=== PATIENT | male | born 1980 | race American Indian/Alaskan Native ===

== ENCOUNTER 2019-01-28 07:11 | Outpatient (CLI) | payer BC ==
--- NOTE | 2019-01-28 08:05 | Ultrasound Report ---
ULTRASOUND TESTICULAR DOPPLER COMPLETE HISTORY: N43.2)Other hydrocele COMPARISON: None. TECHNIQUE: Grayscale, color and spectral Doppler images were obtained of the scrotum. FINDINGS: RIGHT: Right testicle: No significant abnormality. No mass. Right testicular size: 3.4 x 3.3 x 3.0 cm. Right epididymis: There are 2 small right epididymal head cyst measuring 6 mm each. LEFT: Left testicle: No significant abnormality. No mass. Left testicular size: 3.4 x 2.3 x 3.6 cm. Left epididymis: A left epididymal head cyst measures 1.3 cm. Additional findings: Moderate bilateral simple appearing hydroceles are identified. No varicocele. Sp ectral Doppler waveforms demonstrate arterial flow to both testicles. No evidence for epididymoorchit is. IMPRESSION: 1. Moderate bilateral simple appearing hydroceles. 2. Bilateral epididymal head cysts as described. Signer Name: Ton Childs Jr, MD Signed: 01/28/2019 8:00 AM Workstation Name: [id number]
== END 2019-01-28 07:12 | disposition home or self-care (01) ==
LOC: US 07:11
PROVIDERS: ATTEND Urology
DX: N43.2 Other hydrocele (principal); N50.3 Cyst of epididymis
CPT/HCPCS: 93975

== ENCOUNTER 2019-03-10 07:12 | Day surgery (SDC) | payer BC ==
[~2019-03-10 07:12] MED LIST: BUPIVACAINE/PF (0.25%) 2.5 MG/ML 30 ML VIAL INFILTRATI ONE
--- NOTE | 2019-03-10 08:57 | Anesthesia Day of Surgery ---
Anesthesia Day of Surgery - Day of Surgery Patient Examined: Yes Patient H&P Reviewed: Yes Patient is NPO: Yes
--- NOTE | 2019-03-10 08:57 | Anesthesia Consultation ---
Anesthesia Consult and Med Hx Date of service: 03/10/19 - Airway Anesthetic Teeth Evaluation: Good ROM Head & Neck: Adequate Mental/Hyoid Distance: Adequate Mallampati Class: Class II Intubation Access Assessment: Good - Pulmonary Exam CTA: Yes - Cardiac Exam Cardiac Exam: RRR - Pre-Operative Health Status ASA Pre-Surgery Classification: ASA1 Proposed Anesthetic Plan: General - Pulmonary Hx Smoking: No Hx Sleep Apnea: No (ERICK PRE SCREEN LOW RISK) - Cardiovascular System Hx Hypertension: No - Other Systems Hx Cancer: No
[2019-03-10] MEDS ORDERED: ONDANSETRON 4 MG/2 ML INJ IV PRN (08:58)
[2019-03-10] MEDS ORDERED: HYDROmorphone 1 MG/1 ML INJ IV PRN (08:58)
[2019-03-10] MEDS ORDERED: ceFAZolin/STERILE WATER 2 GM/20 ML SYRINGE IV NR (09:00)
[2019-03-10] MEDS ORDERED: LACTATED RINGERS 1,000 ML ONE (09:00)
[2019-03-10] MEDS ORDERED: MIDAZOLAM 2 MG/2 ML INJ IV NR (09:00)
[2019-03-10] MEDS ORDERED: LACTATED RINGERS 1,000 ML IV SCH (09:00)
[2019-03-10] MEDS ORDERED: LIDOCAINE (1%) 10 MG/1 ML VIAL 20 ML MDV ONE (09:43)
[2019-03-10] MEDS ORDERED: BUPIVACAINE/PF (0.25%) 2.5 MG/ML 30 ML VIAL INFILTRATI ONE ×2 (09:43→11:12)
[2019-03-10] MEDS ORDERED: SODIUM CHLORIDE 0.9% IRR 1,000 ML BOTTLE IR ONE (10:25)
[2019-03-10] MEDS ORDERED: fentaNYL 100 MCG/2 ML INJ ONE (10:28)
[2019-03-10] MEDS ORDERED: LIDOCAINE MPF (2%) 20 MG/1 ML VIAL 5 ML ONE (10:28)
[2019-03-10] MEDS ORDERED: PROPOFOL 200 MG/20 ML VIAL IV ONE (10:28)
[2019-03-10] MEDS ORDERED: dexAMETHasone 20 MG/5 ML VIAL ONE (10:52)
[2019-03-10] MEDS ORDERED: ONDANSETRON 4 MG/2 ML INJ ONE (10:52)
[2019-03-10] MEDS ORDERED: SODIUM CHLORIDE 0.9% 1000 ML 1,000 ML ONE (11:44)
--- NOTE | 2019-03-10 12:02 | Post Operative Note ---
Date of procedure: 03/10/19 Pre-op diagnosis: grimes Post-op diagnosis: same Findings: lateral obs Procedure: cysto rezum Anesthesia: GELY Surgeon: STEPH SAMPSON Estimated blood loss: none Pathology: none Condition: stable Disposition: PACU
--- NOTE | 2019-03-10 12:05 | Discharge Summary ---
Short Stay Discharge Plan Activity: other (no straining ) Weight Bearing Status: Full Weight Bearing Diet: regular Durable Medical Equipment Needed Upon Discharge: other (jennifer ) Follow up with: PATRIZIA GALLEGOS DO [Primary Care Provider] - 7 Days STEPH SAMPSON MD [Staff Physician] - 03/11/19
--- NOTE | 2019-03-10 12:08 | Post Operative Note ---
Date of procedure: 03/10/19 Pre-op diagnosis: hydrocel sterilization Post-op diagnosis: same Findings: large r hydrocele Procedure: r hydrocelectomy vas Anesthesia: GETA Surgeon: STEPH SAMPSON Estimated blood loss: minimal Pathology: list (vas sac) Specimen disposition: to lab Condition: stable Disposition: PACU
[2019-03-10 12:48] VITALS: BP 111/65
--- NOTE | 2019-03-10 13:16 | Operative Report ---
PREOPERATIVE DIAGNOSES: Hydrocele and elective sterilization. POSTOPERATIVE DIAGNOSES: Much more prominent right hydrocele, minimal left hydrocele. PROCEDURES: Right hydrocelectomy, bilateral partial vasectomy. SURGEON: Dr. Davila. ANESTHESIA: General. FINDINGS: This is a gentleman for his elective sterilization. All risks and implications discussed. He had a prominent hydrocele right. It looked like a small one on the left. He now presents for treatment. DESCRIPTION OF PROCEDURE: The patient was brought to the operating room and placed on the operating table. Following induction of anesthesia, placed in the supine position, prepped and draped in usual sterile fashion. An oblique incision made over the right hemiscrotum and the surrounding fascial layers were dissected free. Tunica vaginalis was delivered approximately 70 mL of clear fluid was obtained. The vas was then isolated and doubly ligated and the opening was cauterized. The specimen was removed from the vas on the right. Hemostasis was excellent. On the left side, the hydrocele was minimal. We were able to get the vas through the same incision and doubly tied and ligated. We did not do a left hydrocelectomy. The patient tolerated the procedure well. Minimal blood loss less than 5 mL. Superficial fascia was closed with 3-0 chromic. The drain was placed in the dependent portion of the right hemiscrotum and secured with a silk. The superficial fascia was closed with 2-0 and 3-0 chromic. Skin was closed with 2-0 and 3-0 chromic. The patient tolerated the procedure well and brought to recovery in stable condition. JOB# [id number] SHAD/KADE
--- NOTE | 2019-03-10 13:38 | Post Anesthesia Evaluation ---
- Post Anesthesia Evaluation Patient Participated: Yes Airway Patent: Yes Stable Respiratory Function: Yes Nausea/Vomiting: No Temp > 96.8F: Yes Pain Manageable: Yes Adequeate Hydration: Yes Anesthesia Complications: No Block Receding Appropriately: Not Applicable Patient on Ventilator: No
== END 2019-03-10 07:13 | disposition home or self-care (01) ==
LOC: OR 07:12
PROVIDERS: ATTEND Urology
DX: Z30.2 Encounter for sterilization (principal); N43.3 Hydrocele, unspecified
CPT/HCPCS: 55040; 55250; 88302; J0690; J1100; J2250; J2405; J2704; J3010; J7030; J7120